=== PATIENT | female | born 1985 | race Caucasian/White ===

== ENCOUNTER 2018-02-02 22:08 | Emergency (ER) | payer SELFPAY ==
[2018-02-02 23:35] LABS: #Basophils 0.1 thou/uL (0.0-0.2); #Eosinphils 0.2 thou/uL (0.0-0.7); #Lymphocytes 2.9 thou/uL (1.20-3.40); #Monocytes 0.5 thou/uL (0.11-0.59); #Neutrophils 3.7 thou/uL (1.40-6.50); %Basophils 0.7 % (0.0-1.0); %Eosinophils 2.7 % (0.0-10.0); %Lymphocytes 39.9 % (21.0-51.0); %Monocytes 6.3 % (0.0-10.0); %Neutrophils 50.4 % (42.0-75.0); Hemoglobin 10.9 g/dL (12.0-16.0); Mean Corpuscular Hemoglobin 32.9 pg (27.0-31.0); Mean Corpuscular Volume 94.1 fL (78.0-98.0); Mean Platelet Volume 6.7 fL (7.4-10.4); Platelet Count 232 thou/uL (130-400); RBC Distribution Width 12.6 % (11.5-14.5); Red Blood Cell (RBC) Count 3.33 mill/uL (4.20-5.40); White Blood Cell (WBC) Count 7.4 thou/uL (4.8-10.8)
--- NOTE | 2018-02-02 23:39 | ULT ---
OB ULTRASOUND: 02/02/18 HISTORY: Abdominal pain in patient with positive . FINDINGS: There is a single intrauterine gestation in cephalic presentation. The cardiac doppler does demonstra te heart tones with a heart rate of 158 beats per minute. The placenta is located anteri mary grace and is low lying. Subjectively, there is a normal amount of amniotic fluid. measurements: Biparietal diameter 3.41 cm 16 weeks, 4 days Head circumference 12.81 cm 16 weeks, 4 days Abdominal circumference 11.04 cm 16 weeks, 6 days Femur length 1.96 cm 15 weeks, 6 days The estimated gestational age by ultrasound is 16 weeks and 2 days with an GUERITA on 07/18/18. This is a discrepancy when compared with gestational age by last menstrual period of 7 weeks. The estimated fe bart weight by ultrasound is 155 grams (5 oz). anatomical structures are not well evaluated due to early gestational age. No definite an omalies are visualized. Cervical length measures approximately 3.97 cm. IMPRESSION: 1. Single intrauterine gestation with heart tones documented. Estimated gestational age by ultrasound is 16 weeks and 2 days with an GUERITA on 07/18/18. There is a discrepancy in the gestational by the last menstrual period calculated at 7 weeks. 2. The ovaries are unable to be visualized bilaterally. No free fluid is seen in the pelvis. POS: DORINA
[2018-02-02 23:57] LABS: ALT (SGPT) 8 U/L (8-55); AST (SGOT) 10 U/L (5-34); Albumin 3.2 g/dL (3.5-5.0); Alkaline Phosphatase 49 U/L (40-150); Anion Gap 9 mmol/L (10-20); BUN (Urea Nitrogen) 6 mg/dL (7.0-18.7); Bilirubin, Total 0.2 mg/dL (0.2-1.2); Calc. Creatinine Clearance 0 mL/min (70-130); Calcium 7.9 mg/dL (7.8-10.44); Carbon Dioxide 19 mmol/L (22-29); Chloride 110 mmol/L (98-107); Estimated GFR-MDRD Greater than 90; Globulin 2.4 g/dL (2.4-3.5); Glucose 81 mg/dL (70-105); Lipase 42 U/L (8-78); Potassium 3.5 mmol/L (3.5-5.1); Protein, Total 5.6 g/dL (6.0-8.3); Sodium 134 mmol/L (136-145)
[2018-02-04 02:06] LABS: Chlamydia by PCR DETECTED (NotDetected); GC by PCR Not Detected (NotDetected)
== END 2018-02-03 00:53 | disposition home or self-care (01) ==
LOC: ERS 22:08
DX: O20.0 Threatened abortion (principal); O23.41 Unspecified infection of urinary tract in pregnancy, first trimester; O99.331 Smoking (tobacco) complicating pregnancy, first trimester; F17.210 Nicotine dependence, cigarettes, uncomplicated; Z3A.08 8 weeks gestation of pregnancy
CPT/HCPCS: 36415; 76856; 83605; 83690; 84702; 86900; 86901; 87480; 87491; 87510; 87591; 87660; 93976